=== PATIENT | female | born 1960 | race Two or more races ===

== ENCOUNTER 2024-06-25 16:26 | Inpatient (IN) | payer OTHER ==
[~2024-06-25] VITALS: Ht 162.6 cm; Wt 47.6 kg
[~2024-06-25 16:26] MED LIST: CLARINEX-D 11 BOTTLE PO
[2024-06-25] MEDS ORDERED: CRESTOR40 MG (16:48)
--- NOTE | 2024-06-25 16:49 | NUR ---
SE RECIBE PTE ALERTA Y ORIENTADA LA CUAL REFIERE VENIR POR MALESTAR GENERAL, TOS SECA, DEBILIDAD DESDE HACE 2 SEMANAS. SE MIDEN S/V A PTE Y SE UBICA.
[2024-06-25] MEDS ORDERED: ACETAMINOPHEN 500 MG GEL..CAP PO ONE ×2 (17:30→17:44)
[2024-06-25] MEDS ORDERED: GUAIFENESIN/DEXTROMETHORPHAN 100MG/10ML BLIST.PACK PO ONE (17:30)
--- NOTE | 2024-06-25 17:37 | NUR ---
MS CODY ORIENTA PTE SOBRE TX MEDICO EL CUAL REFIERE ENTENDER.SE EXTRAEN MUESTRAS BAJO MEDIDAS BAJO MEDIDAS ASEPTICAS,SE ADMINISTRAN MEDICAMENTOS BERTA ORDEN MEDICA.
[2024-06-25] MEDS ORDERED: GUAIFENESIN 200 MG/10 ML BLIST.PACK PO ONE (17:44)
[2024-06-25 18:16] LABS: HEMATOCRIT 40.4 % (36.0-45.00); HEMOGLOBIN 13.4 g/dL (12.0-15.00); MEAN CELL VOLUME 92.1 fL (80.00-100.00); MEAN CORPUSCULAR HEMOGLOBIN 30.6 pg (27.00-32.0); MEAN CORPUSCULAR HGB CONC 33.2 g/dl (32.0-36.0); PLATELET COUNT 217 K/uL (150-450); RED BLOOD COUNT 4.38 M/uL (4.00-6.00); RED CELL DISTRIBUTION WIDTH 13.9 % (11.5-14.5)
[2024-06-25 19:24] LABS: ABG PH 7.383 (7.35-7.45); ABG PO2 73.4 mmHg (80-100); ABG pCO2 38.8 mmHg (35-45); BASE EXCESS -2.1 mmol/l; BICARBONATE 22.6 mmol/l (23-25); SaO2 94.2 %; Tco2 23.8 mmol/l
[2024-06-25] MEDS ORDERED: IPRATROPIUM/ALBUTEROL SULFATE 3 ML AMPUL.NEB IH ONE (19:26)
[2024-06-25] MEDS ORDERED: IPRATROPIUM/ALBUTEROL SULFATE 3 ML AMPUL.NEB IH SCH (19:30)
[2024-06-25 19:42] LABS: allen test SATISFACTORY; puncture site RADIAL RIGHT
[2024-06-25 19:43] LABS: o2 21 %
[2024-06-25] MEDS ORDERED: METHYLPREDNISOLONE SOD SUCC 125 MG VIAL IV ONE (20:30)
[2024-06-25] MEDS ORDERED: levoFLOXacin IN DEXTROSE 5 % 500MG/100ML PIGGYBAG IV ONE ×2 (20:30→20:35)
[2024-06-25] MEDS ORDERED: METHYLPREDNISOLONE SOD SUCC 125 MG VIAL ONE (20:35)
[2024-06-25] MEDS ORDERED: WATER FOR INJ.,BACTERIOSTATIC 30 ML VIAL IJ ONE (20:35)
[2024-06-25] MEDS ORDERED: IPRATROPIUM BROMIDE 0.5 MG/2.5 ML AMPUL.NEB IH SCH (21:00)
[2024-06-25] MEDS ORDERED: 0.9 % SODIUM CHLORIDE 1,000 ML IV SCH (21:00)
[2024-06-25] MEDS ORDERED: LEVALBUTEROL HCL 1.25 MG/3 ML SOLUTION IH SCH (21:00)
[2024-06-25] MEDS ORDERED: ACETAMINOPHEN 500 MG GEL..CAP PO PRN (21:00)
[2024-06-25] MEDS ORDERED: GUAIFEN/DEXTROMETHORPHAN/PE 10 ML BLIST.PACK PO SCH (21:02)
[2024-06-25 21:56] VITALS: BP 120/70
[2024-06-25 22:11] VITALS: BP 120/70; O2SAT 98
[2024-06-25 22:18] LABS: INR 0.96; PARTIAL THROMBOPLASTIN TIME 27.9 SECONDS (22.0-34.0); PROTHROMBIN TIME 10.5 SECONDS (9.0-11.5)
[2024-06-25 22:46] LABS: ALBUMIN 3.8 gm/dL (3.4-5.0); BILIRUBIN TOTAL 0.32 mg/dL (0.3-1.2); CALCIUM 9.1 mg/dL (8.5-10.1); CREATININE SERUM 0.74 mg/dL (0.55-1.02); GFR 79.26; GLOBULINA 3.5 G/DL (2.4-3.5); PH,URINE 5.5 (5.0-8.0); POTASSIUM 3.9 mEq/L (3.5-5.1); TOTAL PROTEIN 7.3 gm/dL (6.4-8.2); URINE APPEARANCE Clear; URINE BILIRRUBIN Negative (NEGATIVE); URINE BLOOD Moderate; URINE COLOR Yellow; URINE GLUCOSE Negative (NEGATIVE); URINE KETONE Negative (NEGATIVE); URINE LEUKOCYTE Negative; URINE NITRATE Negative; URINE PROTEIN Negative (NEGATIVE); URINE UROBILINOGEN 0.2 E.U./dl
[2024-06-25 22:50] LABS: URINE BACTERIA 277.8 uL (0.0-1933); URINE EPITHELIAL CELLS 11.3 uL (0.0-38.8); URINE RBC 15.3 uL (0.0-20.8); URINE WBC 4.2 uL (0.0-23.2)
[2024-06-25 22:52] LABS: C-REACTIVE PROTEIN 0.56 MG/DL (0.00-0.29)
[2024-06-25 23:00] VITALS: BP 113/54
[2024-06-26] MEDS ORDERED: METHYLPREDNISOLONE SOD SUCC 40 MG VIAL IV SCH (01:00)
[2024-06-26 08:52] VITALS: BP 111/61; O2SAT 96
[2024-06-26] MEDS ORDERED: ENOXAPARIN SODIUM 40 MG/0.4 ML SYRINGE SUBCUTANEO SCH (09:00)
[2024-06-26] MEDS ORDERED: FAMOTIDINE/PF 20 MG in 0.9 % SODIUM CHLORIDE 8 ML IV PUSH SCH (09:00)
[2024-06-26] MEDS ORDERED: levoFLOXacin IN DEXTROSE 5 % 150 ML IV SCH (09:00)
[2024-06-26] MEDS ORDERED: BUDESONIDE 0.5 MG/2 ML AMPUL.NEB IH SCH (11:21)
[2024-06-26] MEDS ORDERED: POLYETHYLENE GLYCOL 3350 17 GM BLIST.PACK PO SCH (12:41)
[2024-06-26] MEDS ORDERED: LACTULOSE 20 G/30 ML BLIST.PACK PO NR (12:45)
[2024-06-26] MEDS ORDERED: BENZONATATE 200 MG CAPSULE PO SCH (13:00)
[2024-06-26] MEDS ORDERED: MONTELUKAST SODIUM 10 MG TABLET PO SCH (17:00)
[2024-06-26 17:35] VITALS: BP 121/72; O2SAT 98
[2024-06-27 01:18] VITALS: BP 123/62; O2SAT 97
[2024-06-27 08:22] VITALS: BP 119/67
[2024-06-27] MEDS ORDERED: SULFAMETHOXAZOLE/TRIMETHOPRIM DS 1 TAB PO STA (10:33)
[2024-06-27] MEDS ORDERED: METHYLPREDNISOLONE SOD SUCC 40 MG VIAL IV SCH (17:00)
[2024-06-27] MEDS ORDERED: CLONAZEPAM 0.5 MG TABLET PO SCH (17:00)
[2024-06-27 19:03] VITALS: BP 136/67; BP 165/69
[2024-06-27] MEDS ORDERED: SULFAMETHOXAZOLE/TRIMETHOPRIM DS 1 TAB PO SCH (21:00)
[2024-06-28 00:53] VITALS: BP 150/77; O2SAT 97
[2024-06-28 08:00] VITALS: BP 117/65; O2SAT 100
== END 2024-06-28 10:48 | disposition home or self-care (01) | DRG 203 ==
LOC: ER 16:29 → MEDJ 21:46 → MEDI 06-26 10:07
PROVIDERS: General Practice; ADMIT Internal Medicine; ATTEND Internal Medicine
PROC: BB24ZZZ Computerized Tomography (CT Scan) of Bilateral Lungs (ICD-10-PCS; principal; 2024-06-25)
PROC: 3E0F7GC Introduction of Other Therapeutic Substance into Respiratory Tract, Via Natural or Artificial Opening (ICD-10-PCS; 2024-06-26)
DX: J45.41 Moderate persistent asthma with (acute) exacerbation (principal); J40 Bronchitis, not specified as acute or chronic; Z88.1 Allergy status to other antibiotic agents; Z88.0 Allergy status to penicillin